=== PATIENT | male | born 1990 | race American Indian/Alaskan Native ===

== ENCOUNTER 2017-08-09 10:39 | Emergency (ER) | payer OTHER ==
--- NOTE | 2017-08-09 15:51 | Emergency Department Report ---
- General Chief Complaint: Upper Respiratory Infection Stated Complaint: COUGH Time Seen by Provider: 08/09/17 15:23 Source: patient Mode of arrival: Ambulatory Limitations: No Limitations - History of Present Illness Initial Comments: 26-year-old male with a past medical history asthma presents complaining of nonproductive cough 2 weeks. Patient has not had his inhaler since April. He complains of increased wheezing and chest tightness. Denies fever, sore throat, itchy/watery eyes, or allergy to pollen. Patient does not have a PMD. No pain reported at this time. - Related Data Previous Rx's Medication Instructions Recorded Last Taken Type Famotidine [Pepcid] 20 mg PO BID #40 tablet 04/07/14 Unknown Rx Hyoscyamine Subl [Levsin Sl] 0.125 mg PO Q6HR #20 tablet 04/07/14 Unknown Rx Promethazine [Phenergan] 25 mg PO Q6H PRN #20 tablet 04/07/14 Unknown Rx ALBUTEROL Inhaler [ProAir HFA 2 puff IH QID PRN #1 inhalation 08/09/17 Unknown Rx Inhaler] Azithromycin [Zithromax Z-MACRIO] 1 dose PO DAILY 5 Days tab 08/09/17 Unknown Rx predniSONE [Deltasone] 40 mg PO QDAY 5 Days tab 08/09/17 Unknown Rx Allergies Allergy/AdvReac Type Severity Reaction Status Date / Time No Known Allergies Allergy Unverified 04/07/14 16:44 ED Review of Systems ROS: Stated complaint: COUGH Other details as noted in HPI Comment: All other systems reviewed and negative ED Past Medical Hx - Past Medical History Previous Medical History?: Yes Hx Asthma: Yes - Surgical History Past Surgical History?: No - Social History Smoking Status: Never Smoker Substance Use Type: Alcohol, Marijuana - Medications Home Medications: Home Medications Medication Instructions Recorded Confirmed Last Taken Type Famotidine [Pepcid] 20 mg PO BID #40 tablet 04/07/14 Unknown Rx Hyoscyamine Subl [Levsin Sl] 0.125 mg PO Q6HR #20 tablet 04/07/14 Unknown Rx Promethazine [Phenergan] 25 mg PO Q6H PRN #20 tablet 04/07/14 Unknown Rx ALBUTEROL Inhaler [ProAir HFA 2 puff IH QID PRN #1 inhalation 08/09/17 Unknown Rx Inhaler] Azithromycin [Zithromax Z-MARCIO] 1 dose PO DAILY 5 Days tab 08/09/17 Unknown Rx predniSONE [Deltasone] 40 mg PO QDAY 5 Days tab 08/09/17 Unknown Rx ED Physical Exam - General Limitations: No Limitations - Other Other exam information: General: No limitations, patient is alert in no acute distress Head exam: Atraumatic, normocephalic Eyes exam: Normal appearance ENT: Moist mucous membrane, normal oropharynx Neck exam: Normal inspection, full range of motion, no meningismus nontender Respiratory exam: Bilateral expiratory wheeze, no tachypnea or accessory muscle use. Patient speaking without difficulty Cardiovascular: Normal rate and rhythm, normal heart sounds Abdomen: Soft, nondistended, and nontender, with normal bowel sounds, no rebound, or guarding Extremity: Full range of motion normal inspection no deformity, no calf tenderness or edema Back: Normal Inspection, full range of motion, no tenderness Neurologic: Alert, oriented x3, cranial nerves intact, no motor or sensory deficit Psychiatric: normal affect, normal mood Skin: Warm, dry, intact ED Course Vital Signs 08/09/17 10:53 Temperature 98.5 F Pulse Rate 69 Respiratory 16 Rate Blood Pressure 154/95 O2 Sat by Pulse 99 Oximetry ED Medical Decision Making - Radiology Data Radiology results: image reviewed (chest x-ray PA and lateral: No acute findings read by me official report pending) - Medical Decision Making Patient has wheezing currently but does not want to receive a breathing treatment since he is not short of breath. He will be prescribed albuterol, steroids, and a Z-Marcio. Outpatient follow-up encouraged. Blood pressure mildly elevated in the ED. Recommend outpatient follow-up for recheck and monitoring. - Differential Diagnosis bronchitis, pneumonia, asthma, seasonal allergy Critical Care Time: No Critical care attestation.: If time is entered above; I have spent that time in minutes in the direct care of this critically ill patient, excluding procedure time. ED Disposition Clinical Impression: Acute asthmatic bronchitis, Elevated blood pressure reading Disposition: TO HOME OR SELFCARE Is pt being admited?: No Does the pt Need Aspirin: No Condition: Stable Instructions: Acute Bronchitis (ED), Asthma (ED), How to Take a Blood Pressure (ED) Additional Instructions: Take the medications as prescribed. Follow-up with the doctor or clinic provided. Continue to monitor your blood pressure and follow up for reevaluation Prescriptions: ALBUTEROL Inhaler [ProAir HFA Inhaler] 2 puff IH QID PRN #1 inhalation PRN Reason: Shortness Of Breath Azithromycin [Zithromax Z-MARCIO] 1 dose PO DAILY 5 Days tab predniSONE [Deltasone] 40 mg PO QDAY 5 Days tab Referrals: [facility] [Provider Group] - 3-5 Days JAYJAY STEWART MD [Staff Physician] - 3-5 Days Time of Disposition: 15:52
[2017-08-09 16:03] VITALS: BP 148/90
--- NOTE | 2017-08-09 16:19 | XRay Report ---
FINAL REPORT EXAM: XR CHEST ROUTINE 2V HISTORY: cough x 2 weeks TECHNIQUE: Frontal and lateral chest x-ray. PRIORS: None. FINDINGS: Cardiac and mediastinal silhouette within normal limits. Lungs are normally expanded, without significant vascular congestion. No focal consolidation, pleural effusion or apparent pneumothorax. Bony thorax grossly unremarkable. IMPRESSION: 1. No acute consolidation.
== END 2017-08-09 16:02 | disposition home or self-care (01) ==
LOC: ED 10:39
DX: J20.9 Acute bronchitis, unspecified (principal); J45.998 Other asthma; R03.0 Elevated blood-pressure reading, without diagnosis of hypertension; F12.10 Cannabis abuse, uncomplicated
CPT/HCPCS: 71046; 99283